=== PATIENT | female | born 1985 | race Caucasian/White ===

== ENCOUNTER 2017-01-01 11:19 | Outpatient (CLI) | payer BC | END 2017-01-01 12:20 | disposition home or self-care (01) | LOC: OBC SRH 11:19 → OB SRH 11:20 → OBC SRH 12:20 | PROC: 4A0HXCZ Measurement of Products of Conception, Cardiac Rate, External Approach (ICD-10-PCS; principal; 2017-01-01) | DX: O36.8130 Decreased fetal movements, third trimester, not applicable or unspecified (principal); O24.415 Gestational diabetes mellitus in pregnancy, controlled by oral hypoglycemic drugs; Z3A.38 38 weeks gestation of pregnancy ==